=== PATIENT | male | born 1995 | race Caucasian/White ===

== ENCOUNTER 2018-03-11 08:51 | Emergency (ER) | payer OTHER ==
--- NOTE | 2018-03-11 09:01 | ER Report ---
History and Physical Time Seen By MD: 09:00 Hx. of Stated Complaint: PT WAS PLAYING FLAG FOOTBALL YESTERDAY. GOT HIT IN THE JAW. NOW IS HAVING BAD HEADACHE, STATES HE CANT CONTROL HIS EYES AND IS HAVING LEFT SIDED CHEST PAIN HPI/ROS CHIEF COMPLAINT: Concussion-like symptoms HISTORY OF PRESENT ILLNESS: Patient is a 22-year-old male with past medical history for multiple concussions and postconcussive syndrome. States he was playing flag football yesterday and struck another player. States that he took a hit to the left jaw and left chest. He felt dizzy immediately after and saw stars but did not black out. Since that time he's felt nauseous he also reports shortness of breath and pain with deep inspiration. Patient denies any other injuries. REVIEW OF SYSTEMS: Respiratory: No cough, no dyspnea. Tenderness to left chest wall Cardiovascular: No chest pain, no palpitations. Gastrointestinal: No vomiting, no abdominal pain. Musculoskeletal: No back pain. Neurologic: Nausea, disorientation Allergies: Coded Allergies: No Known Drug Allergies (Unverified , 03/11/18) Home Meds Active Scripts Ondansetron Hcl (ZOFRAN) 4 Mg Tablet, 4 MG PO Q8H for Nausea, #15 TAB 0 Refills Prov:NITO AGUILAR MD 03/11/18 Past Medical/Surgical History History of 5 concussions in the past. Constitutional Vital Sign - Last 24 Hours 03/11/18 08:54 Temp 97.6 Pulse 57 Resp 14 B/P (MAP) 116/91 Pulse Ox 95 O2 Delivery Room Air Physical Exam General/Constitutional: Patient is awake, alert, nontoxic and in no acute respiratory distress. Head: Normocephalic and atraumatic. Eyes: Conjunctival clear, Pupils are equal and reactive to light. Extraocular muscles are intact and symmetrical. Sclera are clear and anicteric. Ears:External canals are clear. Tympanic membranes are clear with normal landmarks and light reflex. Nares: No rhinorrhea or bleeding. Turbinates are pink and moist. Oropharyngeal: Mucous membranes are moist. There is no pharyngeal erythema or exudate. There are no palatal petechiae. Uvula is midline and symmetrical. Neck: Supple, no adenopathy. Cardiovascular: Heart is regular rate and rhythm without audible murmurs, rubs or gallops. Pulmonary: Lungs are clear to auscultation bilaterally. There are no wheezes, rales, or rhonchi. Chest rise is symmetrical Abdomen: Soft, nontender, no guarding or peritoneal signs. Extremities: No gross deformities, No peripheral cyanosis. Able to move all 4 extremities. Neuro: Alert and oriented X3, Cranial nerves 2 thru 12 are intact and symmetrical. Patient has normal gait. Skin: No rashes, skin is warm dry and well perfused. Medical Decision Making EKG/Imaging Imaging FACILITY: [facility] [place] PATIENT NAME: Yang Elaine : 1995 MR: [id number] V: [id number] EXAM DATE: [id number] ORDERING PHYSICIAN: NITO AGUILAR TECHNOLOGIST: Location: [facility] Patient: Yang Elaine : 1995 Visit/Account:[id number] Date of Sevice: 03/11/2018 EXAMINATION: CT Head without intravenous contrast HISTORY: Head injury. TECHNIQUE: Axial images were obtained from the skull base to the vertex without intravenous contrast. Sagittal and coronal reformatted images are also submitted. One of the following dose optimization techniques was utilized in the performa nce of this exam: Automated exposure control; adjustment of the mA and/or kV according to the patient's size; or use of an iterative reconstruction technique. Specific details can be referenced in the facility's radiology CT exam operational policy. COMPARISON: None available. FINDINGS: Brain volume: Normal. Ventricles: Negative. Acute ischemic changes: None. Hemorrhage: None. Masses / edema: None. Teresa-white: Negative. White matter: Negative. Vessels: Negative. Extra-axial: Negative. Calvarium / skull base: Negative. Visualized sinuses / orbits: Rightward nasal septal deviation. IMPRESSION: 1. No acute intracranial abnormality or skull fracture. 2. Rightward nasal septal deviation. Report Dictated By: Mesfin Amaral MD at 03/11/2018 9:38 AM Report E-Signed By: Mesfin Amaral MD at 03/11/2018 9:41 AM WSN:[email or web address] FACILITY: [facility] [place] PATIENT NAME: Yang Elaine : 1995 MR: [id number] V: [id number] EXAM DATE: [id number] ORDERING PHYSICIAN: NITO AGUILAR TECHNOLOGIST: Location: [facility] Patient: Yang Elaine : 1995 Visit/Account:[id number] Date of Sevice: 03/11/2018 Exam type: CHEST PA AND LAT History: Football injury, hit left side of ribs Comparison: Left rib series performed today Findings: The lungs are free of acute effusions, infiltrates or edema. There is no evidence of a pneumothorax or pneumomediastinum. The cardiac silhouette is normal in size.. IMPRESSION: 1. No acute cardiopulmonary process is seen Report Dictated By: Latoya Butcher MD at 03/11/2018 9:56 AM Report E-Signed By: Latoya Butcher MD at 03/11/2018 9:58 AM WSN:[email or web address] FACILITY: [facility] [place] PATIENT NAME: Yang Elaine : 1995 MR: [id number] V: [id number] EXAM DATE: [id number] ORDERING PHYSICIAN: NITO AGUILAR TECHNOLOGIST: Location: [facility] Patient: Yang Elaine : 1995 Visit/Account:[id number] Date of Sevice: 03/11/2018 Exam type: RIBS LEFT History: Football injury, hit left side of ribs Comparison: Two view chest performed today. Findings: Two views of the left ribs reveal no evidence of acute left rib fracture. If patient's symptoms persist a follow-up left rib series in several weeks may be helpful to exclude an occult injury. IMPRESSION: 1. No gross evidence of acute left rib fracture Report Dictated By: Latoya Butcher MD at 03/11/2018 9:58 AM Report E-Signed By: Latoya Butcher MD at 03/11/2018 9:59 AM WSN:[email or web address] ED Course/Re-evaluation ED Course 03/11/2018 9:06:04 am patient with concussion-like symptoms from a football injury occurred yesterday. Also with some anterior lateral left chest wall pain. Plan at this time will be CT of the head along with left-sided rib x-rays. Patient was offered both pain and nausea medicine but he has declined at this time. Decision to Disposition Date: Mar 11, 2018 Decision to Disposition Time: 10:41 Depart Departure Latest Vital Signs Vital Signs Date Time Temp Pulse Resp B/P (MAP) Pulse Ox O2 Delivery O2 Flow Rate FiO2 03/11/18 08:54 97.6 57 14 116/91 95 Room Air Impression: Primary Impression: Concussion Condition: Improved Disposition: HOME OR SELF-CARE New Scripts Ondansetron Hcl (ZOFRAN) 4 Mg Tablet 4 MG PO Q8H for Nausea, #15 TAB 0 Refills Prov: NITO AGUILAR MD 03/11/18 Departure Forms: ER Transition Record, Medications Reconciliation, Off Work/School Form, School or Work Release?: School Number of days to be released: 2 Patient Portal Information Patient Instructions: Concussion (ED) Problem Qualifiers Primary Impression: Concussion Encounter type: initial encounter Loss of consciousness presence/duration: without LOC Qualified Codes: S06.0X0A - Concussion without loss of consciousness, initial encounter NITO AGUILAR MD Mar 11, 2018 09:01
--- NOTE | 2018-03-11 09:45 | RADIOLOGY IMAGING REPORT ---
FACILITY: [facility] [place] PATIENT NAME: Yang Elaine : 1995 MR: [id number] V: [id number] EXAM DATE: ORDERING PHYSICIAN: NITO AGUILAR TECHNOLOGIST: Location: [facility] Patient: Yang Elaine : 1995 Visit/Account:[id number] Date of Sevice: 03/11/2018 EXAMINATION: CT Head without intravenous contrast HISTORY: Head injury. TECHNIQUE: Axial images were obtained from the skull base to the vertex without intravenous contrast . Sagittal and coronal reformatted images are also submitted. One of the following dose optimization techniques was utilized in the performance of this exam: Autom ated exposure control; adjustment of the mA and/or kV according to the patient's size; or use of an i terative reconstruction technique. Specific details can be referenced in the facility's radiology C T exam operational policy. COMPARISON: None available. FINDINGS: Brain volume: Normal. Ventricles: Negative. Acute ischemic changes: None. Hemorrhage: None. Masses / edema: None. Teresa-white: Negative. White matter: Negative. Vessels: Negative. Extra-axial: Negative. Calvarium / skull base: Negative. Visualized sinuses / orbits: Rightward nasal septal deviation. IMPRESSION: 1. No acute intracranial abnormality or skull fracture. 2. Rightward nasal septal deviation. Report Dictated By: Mesfin Amaral MD at 03/11/2018 9:38 AM Report E-Signed By: Mesfin Amaral MD at 03/11/2018 9:41 AM WSN:[email or web address]
--- NOTE | 2018-03-11 10:01 | RADIOLOGY IMAGING REPORT ---
FACILITY: [facility] PATIENT NAME: Yang Elaine : 1995 MR: [id number] V: [id number] EXAM DATE: ORDERING PHYSICIAN: NITO AGUILAR TECHNOLOGIST: [facility] Patient: Yang Elaine : 1995 Visit/Account:[id number] Date of Sevice: 03/11/2018 Exam type: CHEST PA AND LAT History: Football injury, hit left side of ribs Comparison: Left rib series performed today Findings: The lungs are free of acute effusions, infiltrates or edema. There is no evidence of a pneumothorax or pneumomediastinum. The cardiac silhouette is normal in size.. IMPRESSION: 1. No acute cardiopulmonary process is seen Report Dictated By: Latoya Butcher MD at 03/11/2018 9:56 AM Report E-Signed By: Latoya Butcher MD at 03/11/2018 9:58 AM WSN:[email or web address]
--- NOTE | 2018-03-11 10:03 | RADIOLOGY IMAGING REPORT ---
FACILITY: [facility] [place] PATIENT NAME: Yang Elaine : 1995 MR: [id number] V: [id number] EXAM DATE: ORDERING PHYSICIAN: NITO AGUILAR TECHNOLOGIST: Location: [facility] Patient: Yang Elaine : 1995 Visit/Account:[id number] Date of Sevice: 03/11/2018 Exam type: RIBS LEFT History: Football injury, hit left side of ribs Comparison: Two view chest performed today. Findings: Two views of the left ribs reveal no evidence of acute left rib fracture. If patient's symptoms pers ist a follow-up left rib series in several weeks may be helpful to exclude an occult injury. IMPRESSION: 1. No gross evidence of acute left rib fracture Report Dictated By: Latoya Butcher MD at 03/11/2018 9:58 AM Report E-Signed By: Latoya Butcher MD at 03/11/2018 9:59 AM WSN:[email or web address]
[2018-03-11 10:30] VITALS: BP 123/61
[2018-03-11] MEDS ORDERED: ONDA4TAB97 PO (10:43)
== END 2018-03-11 10:58 | disposition home or self-care (01) ==
LOC: ER 09:00
DX: S06.0X0A Concussion without loss of consciousness, initial encounter (principal)
CPT/HCPCS: 70450; 71046; 71100; 99284